=== PATIENT | male | born 1985 | race Caucasian/White ===

== ENCOUNTER 2023-11-13 16:16 | Emergency (ER) | payer OTHER ==
[~2023-11-13] VITALS: Ht 165.1 cm; Wt 74.8 kg
[2023-11-13 16:25] VITALS: BP 119/76; PULSE 62; RESP 18; TEMP 98.1; O2SAT 98
[2023-11-13] MEDS ORDERED: METH4TAB1 PO (16:38)
[2023-11-13] MEDS ORDERED: CETI10SG1 PO (16:38)
[2023-11-13] MEDS ORDERED: FAMO-90 PO (16:38)
== END 2023-11-13 16:48 | disposition home or self-care (01) ==
LOC: MED 16:16
DX: L50.9 Urticaria, unspecified (principal); Z79.899 Other long term (current) drug therapy
CPT/HCPCS: 99283